=== PATIENT | female | born 1965 | race Caucasian/White ===

== ENCOUNTER → 2017-10-28 | Outpatient (REF) | payer OTHER | LOC: M SFHCLERA 15:13 | DX: J02.9 Acute pharyngitis, unspecified (principal) ==

== ENCOUNTER → 2020-08-12 | Outpatient (CLI) | payer MEDICAID, MEDICARE ==
[~2020-08-12] MED LIST: ALBU17IN INH; CENTTAB47 PO; FERR325T3 PO; NASA1SPR; NEUR300C PO; OMEP1CAP73 PO; PERC5TAB12 PO; RANI15TA PO; SIMVPOW2 PO; TIZANIDINE PO; VITATAB22 PO; ZYRT10CA PO
--- NOTE | 2020-08-12 16:46 | REP ---
INDICATION: LUNG SCREENING. COMPARISON: None. TECHNIQUE: The study is performed without IV contrast. Images are presented at lung windowing only. FINDINGS: There are no lung nodules or masses. However, there is asymmetric pleural thickening in the right lung apex and upper lobe posteriorly. This is likely pleuroparenchymal scarring, however, cannot document stability in the absence of comparison studies. Therefore, I would recommend follow-up chest CT in 3 months for more assurance. IMPRESSION: Asymmetric pleural thickening posteriorly in the right upper lobe. No comparison studies to document stability. There is no category for this finding, however, I would recommend follow-up chest CT in 3 months for more assurance. There are no lung masses or nodules. <Electronically signed by Luis Chow > 08/12/20 [id number]
== END ==
LOC: M RAD 13:11
PROVIDERS: ATTEND Internal Medicine Pulmonary Disease
DX: Z12.2 Encounter for screening for malignant neoplasm of respiratory organs (principal); R91.8 Other nonspecific abnormal finding of lung field

== ENCOUNTER → 2020-11-09 | Outpatient (CLI) | payer MEDICARE ==
--- NOTE | 2020-11-09 15:17 | REP ---
INDICATION: ABN LUNG FINDINGS COMPARISON: 08/12/2020 and 09/09/2017 TECHNIQUE: Standard helical technique without the administration of intravenous contrast FINDINGS: The mediastinum and pulmonary divya are within normal limits. There is a slight pericardial effusion. There is no pleural effusion. The imaged upper abdomen is unchanged from 09/09/2017 as are the imaged osseous structures. Evaluation of the lung mills shows rather heavy biapical pleuroparenchymal scarring status quo. Irregular pleural thickening is again seen along the right posterior chest wall which also appears stable. Note is again made of lung field hyperexpansion. No new abnormal nodules, masses, or opacities have developed. There is very mild cylindrical bronchiectasis which appears stable. IMPRESSION: Stable CT examination the chest when compared to not only the latest prior of 08/12/2020 but also in compared to an older outside prior 09/09/2017. Lung rads category 2 exam. Yearly lung screening is suggested as per the revised Fleischner society criteria. <Electronically signed by Raul Ohara > 11/09/20 [id number]
== END ==
LOC: M RAD 13:32
PROVIDERS: ATTEND Internal Medicine Pulmonary Disease
DX: R91.8 Other nonspecific abnormal finding of lung field (principal)

== ENCOUNTER → 2022-02-01 | Outpatient (CLI) | payer MEDICARE | LOC: M RAD 16:57 | PROVIDERS: ATTEND Internal Medicine Pulmonary Disease | DX: Z87.891 Personal history of nicotine dependence (principal) ==

== ENCOUNTER → 2023-04-01 | Outpatient (CLI) | payer MEDICAID, MEDICARE, OTHER | LOC: M RAD 12:30 | PROVIDERS: ATTEND Internal Medicine Pulmonary Disease | DX: Z87.891 Personal history of nicotine dependence (principal) ==